=== PATIENT | male | born 1985 | race Two or more races ===

== ENCOUNTER 2020-11-03 16:05 | Emergency (ER) | payer OTHER ==
[~2020-11-03] VITALS: Ht 167.6 cm; Wt 63.5 kg
[2020-11-03 17:15] VITALS: BP 113/47
[2020-11-03] MEDS ORDERED: NEOMYCIN-BACITRACIN-POLYM UNITDOSE PKG TOP OINT TOP ONE (18:30)
[2020-11-03] MEDS ORDERED: IBUPROFEN 800 MG TAB PO ONE (18:45)
[2020-11-03] MEDS ORDERED: ONDANSETRON ODT 4 MG TAB PO ONE (19:30)
[2020-11-03] MEDS ORDERED: HYDROcodone-ACET 10/325MG TAB PO ONE (19:30)
== END 2020-11-03 20:11 | disposition home or self-care (01) ==
LOC: ER 16:57
DX: S61.002A Unspecified open wound of left thumb without damage to nail, initial encounter (principal); W26.8XXA Contact with other sharp object(s), not elsewhere classified, initial encounter; Y93.89 Activity, other specified; Y92.89 Other specified places as the place of occurrence of the external cause; Y99.8 Other external cause status
CPT/HCPCS: 99284; Q0162